=== PATIENT | female | born 2000 | race Caucasian/White ===

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

== ENCOUNTER 2018-02-24 09:44 | Emergency (ER) | payer OTHER, SELFPAY ==
[2018-02-24 10:06] LABS: #Eosinphils 0.2 thou/uL (0.0-0.7); #Lymphocytes 2.2 thou/uL (1.20-3.40); #Monocytes 0.6 thou/uL (0.11-0.59); #Neutrophils 3.7 thou/uL (1.40-6.50); %Basophils 0.4 % (0.0-1.0); %Eosinophils 3.1 % (0.0-10.0); %Lymphocytes 32.6 % (28.0-48.0); %Monocytes 9.4 % (0.0-4.0); %Neutrophils 54.6 % (31.0-61.0); Hemoglobin 12.8 g/dL (12.0-16.0); Mean Corpuscular HGB CONC 33.6 g/dL (32.0-36.0); Mean Corpuscular Hemoglobin 30.4 pg (25.0-35.0); Mean Corpuscular Volume 90.6 fl (77.0-87.0); Mean Platelet Volume 6.4 fL (7.4-10.4); Platelet Count 400 thou/uL (130-400); White Blood Cell (WBC) Count 6.7 thou/uL (4.8-10.8)
[2018-02-24 10:26] LABS: ALT (SGPT) 13 U/L (8-55); AST (SGOT) 22 U/L (5-34); Albumin 4.5 g/dL (3.5-5.0); Alkaline Phosphatase 68 U/L (40-150); Anion Gap 11 mmol/L (10-20); BUN (Urea Nitrogen) 13 mg/dL (7.0-18.7); Bilirubin, Total 0.3 mg/dL (0.2-1.2); Calc. Creatinine Clearance 0 mL/min (70-130); Calcium 9.2 mg/dL (7.8-10.44); Carbon Dioxide 26 mmol/L (22-29); Chloride 104 mmol/L (98-107); Estimated GFR-MDRD Greater than 90; Globulin 2.7 g/dL (2.4-3.5); Glucose 99 mg/dL (70-105); Lipase 21 U/L (8-78); Potassium 3.8 mmol/L (3.5-5.1); Protein, Total 7.2 g/dL (6.0-8.3); Sodium 137 mmol/L (136-145)
[2018-02-24 10:54] LABS: Bilirubin Negative (Negative); Blood, Urine Trace (Negative); Glucose, Urine (Dipstick) Negative (Negative); Leukocyte Negative (Negative); Nitrite Negative (Negative); Protein, Urine (Dipstick) Negative (Neg-Trace); Urobilinogen 0.2 mg/dL (0.2-1.0)
[2018-02-24 10:55] LABS: Clarity Clear (Clear)
[2018-02-24 10:57] LABS: Pregnancy Test - Urine (BHCG) Negative (Negative); Pregu Control Background? CLEAR/WHITE (CLR/WHITE); Pregu Control Bar Appear? YES (CONTROL BAR)
[2018-02-24 11:02] LABS: RBC/HPF 0-3 HPF (0-3); WBC/HPF 0-3 HPF (0-3)
[2018-02-24 11:03] LABS: Bacteria/HPF None Seen HPF (None Seen); Hyaline Casts/LPF NONE SEEN LPF (0-3 Hyaline)
--- NOTE | 2018-02-24 15:16 | ULT ---
ULTRASOUND PELVIS TRANSVAGINAL: Date: 02/24/18 HISTORY: Left pelvic pain. Evaluate for torsion. COMPARISON: None. FINDINGS: Real-time Desai scale with color Doppler and spectral analysis of the pelvis was performed transabdomi nal and transvaginal approach. The uterus measures 6.2 x 4.2 x 3.6 cm. Endometrial thickness is 1.2 c m. Right ovary measures 2.9 x 3.5 x 2.7 cm. Left ovary measures 2.8 x 2.6 x 1.7 cm. Adequate vascular flow to both ovaries. Small volume free fluid in the pelvis. IMPRESSION: Small volume free fluid in the pelvis. Otherwise unremarkable exam. No evidence for ovarian torsion. POS: [facility]
[2018-02-26 22:05] LABS: Chlamydia by PCR Not Detected (NotDetected); GC by PCR Not Detected (NotDetected)
== END 2018-02-24 13:48 | disposition home or self-care (01) ==
LOC: ERS 09:44
DX: R10.2 Pelvic and perineal pain (principal); J45.909 Unspecified asthma, uncomplicated; F17.210 Nicotine dependence, cigarettes, uncomplicated
CPT/HCPCS: 36415; 76856; 80053; 81003; 81015; 81025; 83690; 85025; 87480; 87491; 87510; 87591; 87660

== ENCOUNTER 2018-05-17 23:39 | Emergency (ER) | payer OTHER ==
[2018-05-18] MEDS ORDERED: Ketorolac Tromethamine 60 MG/2 ML VIAL ONE (00:56)
--- NOTE | 2018-05-18 08:57 | RAD ---
PORTABLE CHEST: Date: 05/18/18 PROVIDED CLINICAL HISTORY: Trauma. Back pain. FINDINGS: Cardiac and mediastinal silhouette is within normal limits. Lungs appear clear. No pleural fluid or p neumothorax apparent. IMPRESSION: No evidence for an acute cardiopulmonary process. POS: [facility]
--- NOTE | 2018-05-18 08:57 | RAD ---
THORACIC SPINE 3 VIEWS: Date: 05/18/18 PROVIDED CLINICAL HISTORY: Back pain. FINDINGS: Thoracic alignment appears normal. Vertebral body heights appear preserved. Pedicles appear intact. IMPRESSION: No evidence for an acute osseous abnormality. If there is persistent clinical concern, conservative m anagement and follow-up imaging advised. POS: [facility]
== END 2018-05-18 01:46 | disposition home or self-care (01) ==
LOC: ERS 23:39
DX: S29.012A Strain of muscle and tendon of back wall of thorax, initial encounter (principal); F17.210 Nicotine dependence, cigarettes, uncomplicated; W17.89XA Other fall from one level to another, initial encounter
CPT/HCPCS: 71045; 72072; 96372; J1885